=== PATIENT | female | born 1985 | race Caucasian/White ===

== ENCOUNTER 2023-02-06 14:30 | Emergency (ER) | payer BC ==
[~2023-02-06] VITALS: Ht 154.9 cm; Wt 50.8 kg
--- NOTE | 2023-02-06 15:00 | NUR ---
PT IS IN ROOM #2B. DR GONZALEZ EVALUATED THE PT.
[2023-02-06 15:03] LABS: *BILIRUBIN,URIN NEGATIVE (NEGATIVE); *CLARITY,URINE CLEAR (CLEAR); *COLOR,URINE YELLOW (YELLOW); *KETONES,URINE NEGATIVE (NEGATIVE); *UROBILINOGEN,URINE 0.2 E.U./dl (NORMAL); LEUKOCYTE ESTERASE ,URINE NEGATIVE (NEGATIVE); NITRITE, URINE NEGATIVE (NEGATIVE); PH,URINE 5.5 (5.0-8.0); UGLUCOSE NEGATIVE (NEGATIVE)
[2023-02-06 15:05] LABS: *URINE HCG, QUAL NEG (NEGATIVE)
[2023-02-06 15:06] LABS: *BLOOD, URINE TRACE (NEGATIVE)
[2023-02-06 15:12] LABS: HEMATOCRIT 38.7 % (31.2-41.9); MEAN CORPUSCULAR HEMOGLOBIN 31.9 uug (24.7-32.8); MEAN CORPUSCULAR VOLUME 91.8 fL (75.5-95.3); PLATELET COUNT (AUTO) 316 K/uL (179-408)
[2023-02-06 15:25] LABS: BILIRUBIN,DIRECT 0.1 mg/dL (0.0-0.2); BILIRUBIN,TOTAL 0.5 mg/dL (0.2-1.0); CREATININE 0.6 mg/dL (0.6-1.3); POTASSIUM 3.3 mmol/L (3.5-5.1); TOTAL PROTEIN, SERUM 8.1 g/dL (6.4-8.2)
[2023-02-06] MEDS ORDERED: IBUP-1955 PO (17:14)
[2023-02-06 17:39] LABS: BACTERIA,URINE NONE SEEN /HPF (NONE SEEN); RBC,URINE 0-3 /HPF (0-3); SQUAMOUS EPITHELIAL CELL,UR FEW /HPF (NONE SEEN); WBC,URINE 0-3 /HPF (0-3)
--- NOTE | 2023-02-06 17:53 | NUR ---
PT WAS D/C'd TO HOME. D/C INSTRUCTIONS GIVEN TO THE PT BY DR GONZALEZ.
[2023-02-06 17:54] VITALS: BP 123/65
== END 2023-02-06 17:55 | disposition home or self-care (01) ==
LOC: ER 14:30
DX: N83.201 Unspecified ovarian cyst, right side (principal); R10.31 Right lower quadrant pain
CPT/HCPCS: 36415; 76856; 83690; 84703; 85025; A4663